=== PATIENT | female | born 1950 | race Caucasian/White ===

== ENCOUNTER 2024-11-18 18:10 | Emergency (ER) | payer BC, MEDICARE, OTHER | END 2024-11-18 19:20 | disposition home or self-care (01) | LOC: KA.ED 18:10 → SUPCPDRO 18:10 → KA.ED 19:20 | DX: S86.912A Strain of unspecified muscle(s) and tendon(s) at lower leg level, left leg, initial encounter (principal); X50.0XXA Overexertion from strenuous movement or load, initial encounter; Y93.89 Activity, other specified | CPT/HCPCS: 73560-LT; 99283 ==